=== PATIENT | male | born 1940 | race Caucasian/White ===

== ENCOUNTER → 2016-08-17 | Outpatient (CLI) | payer MEDICARE ==
[2015-06-09 07:00] VITALS: BP 145/81
[~2016-08-17] MED LIST: ASPI-482 PO; ATOR20TA58 PO; BENA40TA2 PO; CARV25TA2 PO; CELE200C PO; CHOL10003 PO; GLIM4TAB2 PO; HYDR-963 PO; METF500T9 PO; MULT1TAB52 PO; OMEG1CAP28 PO; SERT100T PO; WARF5TAB7 PO; [UNRECOGNIZED DRUG - CODE] PO
--- NOTE | 2016-08-21 08:51 | RAD ---
APPROVED REPORT Patient Location: OUT-PATIENT Indications TAL LEG PAIN VELOCITY AND DOPPLER WAVEFORM ANALYSIS RIGHT cm/secWaveformSeverity LEFT c m/secWaveformSeverity pCFA 99.0TriphasicpCFA 91.9Triphasic Prof Fem Art. 41.2BiphasicProf Fem Art. 72.6Triphasic Fem Art Prox. 73.1TriphasicFem Art Prox. 83.6Triphasic Fem Art Mid. 64.8TriphasicFem Art Mid. 64.9Biphasic Fem Art Dist. 90.2TriphasicFem Art Dist. 96.4Triphasic Pop Art(Fossa) 124.9TriphasicPop Art(Fossa) 120.8Triphasic STEM MOUNTER Dist. 49.2TriphasicPTA Dist. 93.2Triphasic Per Art Dist. 51.2TriphasicPer Art Dist. 60.4Triphasic YORDY Prox. 28.2MonophasicATA Prox. 86.1Triphasic YORDY Dist. 39.8MonophasicATA Dist. 20.6Monophasic Findings Alvarado scale images demonstrate diffuse atherosclerotic plaque. No significant high grade stenosis is n oted. Spectral waveforms demonstrate mostly biphasic and triphasic waveforms in the major arterial ve ssels. Ankle velocities in the bilateral DP arteries are diminished suggestive of distal small vessel disease. Critical Notification Critical Value: No <Conclusion> No high grade flow limiting disease about the ankle.
== END | disposition home or self-care (01) ==
LOC: US 06:37
PROVIDERS: ATTEND Internal Medicine Cardiovascular Disease
DX: M79.604 Pain in right leg (principal); M79.605 Pain in left leg
CPT/HCPCS: 93925

== ENCOUNTER → 2016-08-21 | Outpatient (CLI) | payer MEDICARE ==
[2015-06-09 07:00] VITALS: BP 145/81
[~2016-08-21] MED LIST changes: +ATOR40TA59 PO; +CLOP75TA PO; +CYAN10002 IM; +FURO-69 PO; +ONDA8TAB12 PO; +REGADENOSON 0.4 MG/5 ML DISP.SYRIN. IV ONE
--- NOTE | 2016-08-21 12:54 | CARD ---
APPROVED REPORT EXAM: Two-dimensional and M-mode echocardiogram with Doppler and color Doppler. Other Information Quality : GoodHR: 100bpm Rhythm : Tachycardia INDICATION Dyspnea on exertion RISK FACTORS Hypertension Diabetes 2D DIMENSIONS RVDd2.7 (2.9-3.5cm)Left Atrium(2D)3.8 (1.6-4.0cm) IVSd1.3 (0.7-1.1cm)Aortic Root(2D)3.0 (2.0-3.7cm) LVDd6.4 (3.9-5.9cm)LVOT Diameter2.4 (1.8-2.4cm) PWd1.1 (0.7-1.1cm)LVDs5.5 (2.5-4.0cm) FS (%) 13.9 %SV60.2 ml LVEF(%)29.1 (>50%) Aortic Valve AoV Peak Judd.97.4cm/sAoV VTI18.1cm AO Peak GR.3.8mmHgLVOT Peak Judd.74.4cm/s AO Mean GR.2mmHgAVA (VMAX)3.57cm2 Mitral Valve MV E Peak Gr.8mmHgMV E Mean Gr.3mmHg Pulmonary Valve PV Peak Froxvwzv89.0cm/s Tricuspid Valve TR P. Zyofbaaw606uo/sTR Peak Gr.69mmHg Pulmonary Vein S1 Jhofytei12.8cm/sD2 Gqybvvci00.0cm/s PVa [id number] LEFT VENTRICLE The Left Ventricle is mildly dilated. There is mild concentric left ventricular hypertrophy. Left angela tricle systolic function is severely impaired. The Ejection Fraction is 20-25%. There is severe globa l hypokinesis of the left ventricle. Tissue Doppler imaging reveals moderate left ventricular diastol ic dysfunction. No left ventricle thrombus noted on this study. RIGHT VENTRICLE The right ventricle is normal size. There is normal right ventricular wall thickness. The right ventr icular systolic function is normal. ATRIA The left atrium is severely dilated. The right atrium size is normal. The interatrial septum is intac t with no evidence for an atrial septal defect or patent foramen ovale as noted on 2-D or Doppler keith ging. AORTIC VALVE The aortic valve is mildly sclerotic. The aortic valve is trileaflet. Doppler and Color Flow revealed no significant aortic regurgitation. There is no significant aortic valvular stenosis. MITRAL VALVE Mitral annular calcification is mild. The mitral valve leaflets are thickened. There is no evidence o f mitral valve prolapse. There is no mitral valve stenosis. Doppler and Color Flow revealed mild mitr al regurgitation. TRICUSPID VALVE The tricuspid valve is normal in structure and function. Doppler and Color Flow revealed mild tricusp id regurgitation.The pulmonary artery systolic pressure is estimated at 74 mmHg. There is severe pulm onary hypertension. PULMONIC VALVE Doppler and Color Flow revealed trace pulmonic valvular regurgitation. There is no pulmonic valvular stenosis. GREAT VESSELS The aortic root is normal in size. The ascending aorta is normal in size. The pulmonary artery is nor mal. The IVC is normal in size and collapses >50% with inspiration. PERICARDIAL EFFUSION There is no evidence of significant pericardial effusion. Critical Notification Critical Value: No <Conclusion> Left ventricle systolic function is severely impaired. The Ejection Fraction is 20-25%. There is severe global hypokinesis of the left ventricle. Doppler and Color Flow revealed mild tricuspid regurgitation.The pulmonary artery systolic pressure i s estimated at 74 mmHg. There is severe pulmonary hypertension.
--- NOTE | 2016-08-21 13:27 | RAD ---
APPROVED REPORT Test Type: Pharmacological Stress Nurse/Tech: Belkys Victoria R.N. Test Indications: Dyspnea Cardiac History: Family history, Hypertension, Diabetes Medications: See Electronic Medical Record Medical History: See Electronic Medical Record Resting ECG: LBBB Resting Heart Rate: 97 bpm Resting Blood Pressure: 106/67mmHg Pretest Chest Pain: No chest pain Nurse/Tech Notes S1S2, lungs sound clear Consent: The procedure was explained to the patient in lay terms. Informed consent was witnessed. Terry eout was entered into [employer]. History and Stress Test performed by Belkys Victoria R.N. Pharm. Details Pharmacologic stress testing was performed using 0.4mg per 5ml of regadenoson given intravenously ove r 7-10 seconds. Stress Symptoms Dyspnea POST EXERCISE Reason for Termination: Infusion complete Max HR: 103 bpm Max Blood Pressure: 108/62mmHg Blood Pressure response to exercise: Normal blood pressure response during stress. Chest Pain: No. Arrhythmia: No. ST Change: Yes. 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 Stress EKG positive wi th posterior, inferior and lateral st segment depression. Imaging Protocol IMAGE PROTOCOL: Rest Tc-99m/stress Tc-99m 1 day Rest: Stress: Viability: Radiopharm.Tc99m [id number] Sestamibi Dose12.6mCi 34mCi Duration 20min. 10min. Img Date 08/21/2016 08/21/2016 Inj-Img [id number]. 90min. Rest Admin Site:IV - Right AntecubitalAdministrator:MARYA Panda Stress Admin Site: IV - Right AntecubitalAdministrator: Jose Alfredo Flor, RT (R)(N) STRESS DATA End Diast. Vol.278.0mlAv. Heart Rate94.0bpm End Syst. Vol.170.0mlCO Index BSA0.0L/min Myocardial Xvud514.0gEject. Fgqbhucm89.0% Stress Rates Pk. Fill Rate2.52EDV/secLVtime Pk. Fill 190.56msec Pk. Empty Rate3.08ESV/secLVtime Pk. Eject79.23msec 06/13 Pk. Fill1.13EDV/sec Stress Scores Regional WT0.00Summed WT17.00 Regional WM3.00Summed WM19.00 LV Perfusion There is a large sized, severe in intensity inferior, inferolateral, and apical perfusion defect sugg estive of prior infarct with mild daily-infarct reversibility. Based on tracer uptake in the rest imag es, the defect is mostly viable. 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 Wall Motion Severe global hypokinesis with an EF of 39% LV Perf. Quant 17 Seg. SSS14.00 17 Seg. SRS11.00 17 Seg. SDS3.00 Stress Defect Extent (% LAD)2.50Rest Defect Extent (% LAD)5.00Rev. Defect Extent (% LAD)2.50 Stress Defect Extent (% LCX) 85.00Rest Defect Extent (% LCX)81.30Rev. Defect Extent (% LCX)5.00 Stress Defect Extent (% RCA)30.00Rest Defect Extent (% RCA)23.30Rev. Defect Extent (% RCA)3.30 Stress Defect Extent (% ALMA)28.90Rest Defect Extent (% ALMA)24.80Rev. Defect Extent (% ALMA)6.10 Other Information Quality:Average Risk Assessment: Moderate-High Risk Conclusion 1. Positive stress EKG with vasodilator infusion with inferior/lateral changes 2. Large inferior/lateral defect suggestive of prior infarct with mild daily-infarct reversibility 3. Severe LV dysfunction. EF 39% 4. Moderate to high risk study Recommendations Coronary angiography
== END | disposition home or self-care (01) ==
LOC: NM 07:12
PROVIDERS: ATTEND Internal Medicine Cardiovascular Disease
DX: R06.09 Other forms of dyspnea (principal); I10 Essential (primary) hypertension; Z79.01 Long term (current) use of anticoagulants; E11.9 Type 2 diabetes mellitus without complications
CPT/HCPCS: 78452; 93017; 93306; 96374; 96375; 96376; A9500; J2785

== ENCOUNTER 2016-08-22 06:56 | Inpatient (IN) | payer MEDICARE ==
[~2016-08-22] VITALS: Ht 177.8 cm; Wt 99.4 kg
[2016-08-22] VITALS (14 sets, daily range): BP systolic 94–131; BP diastolic 63–87
[~2016-08-22 06:56] MED LIST changes: -ATOR40TA59 PO; -CLOP75TA PO; -CYAN10002 IM; -FURO-69 PO; -ONDA8TAB12 PO; -REGADENOSON 0.4 MG/5 ML DISP.SYRIN. IV ONE
[2016-08-22] MEDS ORDERED: CYAN10002 IM (07:23)
[2016-08-22] MEDS ORDERED: ATOR40TA59 PO (07:23)
[2016-08-22 07:31] LABS: HEMATOCRIT 30.5 % (39.0-53.0); HEMOGLOBIN 10.2 g/dL (13.0-17.5); RED BLOOD COUNT 3.35 x10^6/uL (4.30-5.70); WHITE BLOOD COUNT 5.5 x10^3/uL (4.0-11.0)
[2016-08-22] MEDS ORDERED: HEPARIN for ARTERIAL LINE 1,500 ML ONE (07:31)
[2016-08-22] MEDS ORDERED: IODIXANOL 320 MG/ML 100 ML VIAL. ONE (07:32)
[2016-08-22] MEDS ORDERED: LIDOCAINE 2% 20 ML VIAL. ONE (07:32)
[2016-08-22 07:36] LABS: CALCIUM 8.7 mg/dL (8.5-10.1); CREATININE 1.3 mg/dL (0.7-1.3); GFR 53.7
[2016-08-22 07:43] LABS: INR 1.2 (0.8-1.1); PROTHROMBIN TIME PATIENT 14.1 SEC (11.7-14.0)
[2016-08-22] MEDS: IV NORMAL SALINE 1000ML BAG 1,000 ML IV SCH ×2 (08:25→16:34)
[2016-08-22] MEDS ORDERED: VERAPAMIL 5 MG/2 ML VIAL. ONE (08:27)
[2016-08-22] MEDS ORDERED: NITROGLYCERIN 200 MCG/2 ML SYRINGE FOR CATH/VASC LAB. ONE (08:27)
[2016-08-22] MEDS ORDERED: ASPIRIN 325 MG TABLET ONE (08:28)
[2016-08-22] MEDS ORDERED: MIDAZOLAM HCL 2 MG/2 ML VIAL. ONE (08:28)
[2016-08-22] MEDS ORDERED: HEPARIN for IV BOLUS 10,000 UNIT/10 ML VIAL. ONE (08:28)
[2016-08-22] MEDS ORDERED: FENTANYL PF 100 MCG/2 ML VIAL. ONE (08:28)
--- NOTE | 2016-08-22 08:31 | PDOC ---
MODERATE SEDATION ASSESSMENT RISKS/ALTERNATIVES Risks/Alternatives Risks and alternatives of this type of sedation and procedure discussed with: RISK/ALTERNATIVES: Patient H & P ON CHART H & P H & P on chart and reviewed for co-morbid conditions and appropriate labs. H&P ON CHART: Yes STATUS PREG STATUS ASSESSED: N/A MEDS/ALLERGIES REVIEWED Meds/Allergies Reviewed Medications and Allergies including time and route of recently administered narcotics and sedatives. MEDS/ALLERGIES REVIEWED: Yes ASA RATING ASA RATING: II AIRWAY ASSESSMENT Airway Assessment Airway patency, oral function limitations, presence of caps, crowns, dentures, partials, and ability to extend neck assessed. AIRWAY ASSESSMENT: Yes MALLAMPATI SCORE MALLAMPATI SCORE: III PRE-SEDATION ASSESSMENT PRE-SEDATION ASSESSMENT: Yes KOURTNEY LOONEY MD Aug 22, 2016 08:31
[2016-08-22] MEDS ORDERED: FENTANYL PF 100 MCG/2 ML VIAL. IV ONE (08:45)
[2016-08-22] MEDS ORDERED: MIDAZOLAM HCL 2 MG/2 ML VIAL. IV ONE (08:45)
[2016-08-22] MEDS ORDERED: VERAPAMIL 5 MG/2 ML VIAL. IART ONE (08:45)
[2016-08-22] MEDS ORDERED: LIDOCAINE 2% 20 ML VIAL. IJ ONE (08:45)
[2016-08-22] MEDS ORDERED: HEPARIN for IV BOLUS 10,000 UNIT/10 ML VIAL. IART ONE (08:45)
[2016-08-22] MEDS ORDERED: NITROGLYCERIN 200 MCG/2 ML SYRINGE FOR CATH/VASC LAB. IART ONE (08:45)
[2016-08-22] MEDS ORDERED: IODIXANOL 320 MG/ML 100 ML VIAL. IART ONE (08:45)
[2016-08-22] MEDS ORDERED: ASPIRIN 325 MG TABLET PO ONE (08:45)
[2016-08-22] MEDS ORDERED: CONTRAST GIVEN MC PRN (09:00)
--- NOTE | 2016-08-22 09:46 | CARD ---
APPROVED REPORT Procedure(s) performed: Right transradial approach Left Heart Catheterization + Coronary angiography HISTORY The patient is a 75 year-old male with a history of : diabetes mellitus with oral treatment, hyperten yonatan, dyslipidemia, family history of premature CAD. INDICATION The indication(s) include : unstable angina , dyspnea. CASE TECHNIQUE During this case, Fluoroscopy and low osmolar contrast were used for imaging. PROCEDURE NARRATIVE The patient was brought electively to the cardiac catheterization lab. A timeout was performed confi rming the patient's name, date of , procedure, and site of procedure. All necessary personnel w ere wearing the appropriate protective equipment and radiation monitor devices. After explaining the risks and benefits of the procedure and alternatives, informed consent was obtained. (See nursing no alyssia for medications administered). The right wrist was sterilely prepped and draped in the usual fas hion. The right wrist was infiltrated with 1 mL of 2% lidocaine for subcutaneous anesthesia. A 6 Fr ench Terumo glide sheath was inserted into the right radial artery without difficulty. Right and lef t coronary angiography was performed using a 6Fr TIG 4.0 catheter and a JR4 catheter. Left ventricul ar end diastolic pressure was obtained with a JR4 and pullback was performed. All catheter exchanges and advancements were performed over a guidewire. At case completion the right radial sheath was re moved and a Terumo radial band was applied with 13 ml of air. The patient tolerated the procedure we ll and there were no immediate complications. HEMODYNAMICS: LVEDP 38 mm Hg No gradient on LV to aortic pullback. LEFT VENTRICULOGRAM: Deferred due to recent echo with an EF of 25% CORONARY ANGIOGRAPHY: LM is a large caliber vessel with a mid to distal 70% stenosis. LAD is a large caliber vessel proximally with stenosis extending from the LM of approximately 70%. Th e distal vessel is small in caliber with miild diffuse disease. Ramus is a small caliber vessel with severe diffuse disease. LCx is a moderate caliber non-dominant vessel with a flush ostial occlusion. OM1 is a moderate caliber vessel with an ostial occlusion. The distal vessel is seen to fill via left to left collaterals. RCA is a large caliber dominant vessel with a proximal 40% stenosis. The mid to distal vessel has mil d diffuse disease. RPDA and RPL are moderate caliber vessels with ostia/proximal 90% and 80% stenosis, respectively. Conclusion 1. Severely elevated left ventricular filling pressures. 2. Severe 3V CAD with LM involvement. Recommendations Admit to hospital for mgmt of heart failure CT surgery consultation Consider high risk Impella supported PCI after HF optimization if patient felt to be poor candidate f or CABG Will await patient/family decision.
[2016-08-22] MEDS ORDERED: NITROGLYCERIN SUBLINGUAL 0.4 MG BOTTLE OF 25. SL PRN (11:15)
[2016-08-22] MEDS ORDERED: FUROSEMIDE 20 MG/2 ML VIAL IVP ONE (11:15)
[2016-08-22] MEDS ORDERED: 0.9 % SODIUM CHLORIDE 10 ML DISP.SYRIN. IV PRN (11:15)
[2016-08-22] MEDS ORDERED: ONDA8TAB12 PO (13:00)
--- NOTE | 2016-08-22 14:13 | PDOC1 ---
History and Physical Past Medical History Past Medical History Past Medical History: Diabetes-Type II, High Cholesterol, Hypertension Additional Past Surgical Histo: bilateral cataracts, left detached retina, hip surgery, Alcohol Use: Occasionally Drug Use: None smoking none Family History Family History NO CAD, SUDDEN CARDIAC . Cardiovascular: HTN Endocrine: Diabetes Past Surgical History Past Surgical History: No pertinent history Family History Family History: No Significant Social History ALCOHOL: occassional Drugs: None Current Problem List Problem List Problems Medical Problems: (1) CAD (coronary artery disease) Status: Acute Current Medications Current Medications Current Medications Medications (Trade) Dose Ordered Sig/Jennyfer Start Time Stop Time Status Last Admin Dose Admin Aspirin (Robbi Aspirin) 325 mg 1X ONCE 08/22/16 08:45 08/22/16 08:48 DC 08/22/16 09:02 325 MG Aspirin (Ecotrin) 81 mg [id number] 08/23/16 08:00 Atorvastatin Calcium (Lipitor) 40 mg QHS 08/22/16 21:00 Fentanyl Citrate (Fentanyl 2ml Vial) 100 mcg 1X ONCE 08/22/16 08:45 08/22/16 08:48 DC 08/22/16 09:01 75 MCG Furosemide (Lasix) 20 mg 1X ONCE 08/22/16 11:15 08/22/16 11:21 DC 08/22/16 13:17 20 MG Heparin Sodium (Porcine) 2,500 unit 1X ONCE 08/22/16 08:45 08/22/16 08:48 DC 08/22/16 09:02 2,500 UNIT Heparin Sodium/ Sodium Chloride 1,000 unit 1X ONCE 08/22/16 08:45 08/22/16 08:48 DC 08/22/16 09:00 1,000 UNIT Info (Do NOT chart on this entry -- for MONITORING) 1 each PRN DAILY PRN 08/22/16 09:00 08/24/16 08:59 Iodixanol (Visipaque 320) 100 ml 1X ONCE 08/22/16 08:45 08/22/16 08:48 DC 08/22/16 09:00 55 ML Lidocaine HCl 2 ml 1X ONCE 08/22/16 08:45 08/22/16 08:48 DC 08/22/16 09:00 2 ML Midazolam HCl (Versed) 2 mg 1X ONCE 08/22/16 08:45 08/22/16 08:48 DC 08/22/16 09:01 1.5 MG Nitroglycerin (Nitroglycerin) 200 mcg 1X ONCE 08/22/16 08:45 08/22/16 08:48 DC 08/22/16 09:01 200 MCG Nitroglycerin (Nitrostat) 0.4 mg PRN Q5MIN PRN 08/22/16 11:15 Sodium Chloride (Iv Sodium Chloride 0.9% 1000ml Bag) 1,000 ml @ 60 mls/hr [id number] 08/22/16 07:05 08/22/16 08:25 60 MLS/HR Sodium Chloride (Normal Saline Flush) 3 ml QSHIFT PRN 08/22/16 11:15 Verapamil HCl (Verapamil) 2.5 mg 1X ONCE 08/22/16 08:45 08/22/16 08:48 DC 08/22/16 09:01 2.5 MG Allergies Allergies Allergies Coded Allergies Type Severity Reaction Last Updated Verified No Known Drug Allergies 06/06/15 No ROS Review of System CONSTITUTIONAL: No fever or chills EYES: No recent changes SKIN: No rash or itching CARDIOVASCULAR: sob, no chest pain RESPIRATORY: No SOB or cough GASTROINTESTINAL: No nausea, vomiting or abdominal pain NEUROLOGICAL: No headaches or weakness ENDOCRINE: No cold or heat intolerance GENITOURINARY: No urgency or frequency of urination MUSCULOSKELETAL: No back pain or joint pain LYMPHATICS: No enlarged lymph nodes PSYCHIATRIC: No anxiety or depression Physical Exam Physical Exam GEN.: No apparent distress. Alert and oriented. HEENT: Head is normocephalic, atraumatic NECK: Supple. no jvd LUNGS: Clear to auscultation. normal airflow. HEART: RRR, S1, S2 present. Peripheral pulses intact ABDOMEN: Soft, nontender. Positive bowel sounds. EXTREMITIES: Without any cyanosis. NEUROLOGIC: Normal speech, normal tone PSYCHIATRIC: Normal affect, normal mood. SKIN: No ulcerations Vitals Vitals Vital Signs Date Time Temp Pulse Resp B/P Pulse Ox O2 Delivery O2 Flow Rate FiO2 08/22/16 13:14 91 117/81 08/22/16 12:40 Room Air 08/22/16 12:00 97.6 20 95 97.6 08/22/16 09:20 2.0 Labs Labs Laboratory Tests Test 08/22/16 07:10 White Blood Count 5.5x10^3/uL (4.0-11.0) Red Blood Count 3.35x10^6/uL (4.30-5.70) Hemoglobin 10.2g/dL (13.0-17.5) Hematocrit 30.5% (39.0-53.0) Mean Corpuscular Volume 91fL (79-100) Mean Corpuscular Hemoglobin 31pg (25-35) Mean Corpuscular Hemoglobin Concent 34g/dL (31-37) Red Cell Distribution Width 14.0% (11.5-14.5) Platelet Count 203x10^3/uL (140-400) Prothrombin Time 14.1SEC (11.7-14.0) Prothromb Time International Ratio 1.2 (0.8-1.1) Sodium Level 142mmol/L (136-145) Potassium Level 4.0mmol/L (3.5-5.1) Chloride Level 106mmol/L (98-107) Carbon Dioxide Level 26mmol/L (21-32) Anion Gap 10 (6-14) Blood Urea Nitrogen 24mg/dL (8-26) Creatinine 1.3mg/dL (0.7-1.3) Estimated GFR (Cockcroft-Gault) 53.7 Glucose Level 157mg/dL (70-99) Calcium Level 8.7mg/dL (8.5-10.1) Laboratory Tests Test 08/22/16 07:10 White Blood Count 5.5x10^3/uL (4.0-11.0) Red Blood Count 3.35x10^6/uL (4.30-5.70) Hemoglobin 10.2g/dL (13.0-17.5) Hematocrit 30.5% (39.0-53.0) Mean Corpuscular Volume 91fL (79-100) Mean Corpuscular Hemoglobin 31pg (25-35) Mean Corpuscular Hemoglobin Concent 34g/dL (31-37) Red Cell Distribution Width 14.0% (11.5-14.5) Platelet Count 203x10^3/uL (140-400) Prothrombin Time 14.1SEC (11.7-14.0) Prothromb Time International Ratio 1.2 (0.8-1.1) Sodium Level 142mmol/L (136-145) Potassium Level 4.0mmol/L (3.5-5.1) Chloride Level 106mmol/L (98-107) Carbon Dioxide Level 26mmol/L (21-32) Anion Gap 10 (6-14) Blood Urea Nitrogen 24mg/dL (8-26) Creatinine 1.3mg/dL (0.7-1.3) Estimated GFR (Cockcroft-Gault) 53.7 Glucose Level 157mg/dL (70-99) Calcium Level 8.7mg/dL (8.5-10.1) VTE Prophylaxis Ordered VTE Prophylaxis Devices: Yes VTE Pharmacological Prophylaxi: No NILDA MERCHANT MD Aug 22, 2016 14:13
[2016-08-22] MEDS ORDERED: ONDANSETRON PF 4 MG/2 ML VIAL. IV PRN (14:15)
[2016-08-22] MEDS ORDERED: ACETAMINOPHEN 325 MG TABLET. PO PRN (14:15)
[2016-08-22] MEDS ORDERED: ALBUTEROL SULFATE 2.5 MG/3 ML NEBU. NEB PRN (14:15)
[2016-08-22] MEDS ORDERED: hydrALAZINE 20 MG/ML VIAL. IVP PRN (14:15)
[2016-08-22] MEDS ORDERED: HYDROCODONE/APAP 5/325MG TABLET. PO PRN (14:15)
--- NOTE | 2016-08-22 17:08 | PDOC2 ---
CONSULT Date of Consult Date of Consult DATE: 08/22/16 TIME: 16:53 Reason for Consult Reason for Consult: Severe three-vessel coronary artery disease Referring Physician Referring Physician: Blaine Schwartz MD Identification/Chief Complaint Chief Complaint Shortness of breath Source Source: Chart review, Patient History of Present Illness Reason for Visit: Mr Gar is a 76-year-old male who presented to our [facility] safety helper with increased shortness of breath on minimal exertion. He had an echo which showed a reduced ejection fraction of 25-30%. He went on to have a MPI which showed an inferior wall infarct with daily-infarct viability. He had a left heart cath today, which showed a distal 70% left main disease, proximal LAD stenosis, CT of the proximal circumflex, and a bifurcation lesion of a RPDA and RPL. He and denies angina, palpitations, orthopnea. He currently has no symptoms. He only complains of shortness of breath on minimal exertion which has worsened over the past several months. I was consulted to consider the patient for surgical coronary revascularization. Past Medical History Cardiovascular: HTN Endocrine: Diabetes Past Surgical History Past Surgical History: No pertinent history Family History Family History: No Significant Social History ALCOHOL: occassional Drugs: None Lives: with Family Current Problem List Problem List Problems Medical Problems: (1) CAD (coronary artery disease) Status: Acute Current Medications Current Medications Current Medications Sodium Chloride 1,000 ml @ 60 mls/hr [id number] IV Last administered on t 16:34; Start 08/22/16 at 07:05 Heparin Sodium/ Sodium Chloride 1,500 ml @ As Directed STK-MED ONCE .ROUTE ; Start 08/22/16 at 07:31; Stop 08/22/16 at 07:32; Status DC Lidocaine HCl 20 ml STK-MED ONCE .ROUTE ; Start 08/22/16 at 07:32; Stop at 07:33; Status DC Iodixanol (Visipaque 320) 100 ml STK-MED ONCE .ROUTE ; Start 08/22/16 at 07:32; Stop 08/22/16 at 07:33; Status DC Nitroglycerin (Nitroglycerin) 200 mcg STK-MED ONCE .ROUTE ; Start 08/22/16 at 08 :27; Stop 08/22/16 at 08:28; Status DC Verapamil HCl (Verapamil) 5 mg STK-MED ONCE .ROUTE ; Start 08/22/16 at 08:27; Stop 08/22/16 at 08:28; Status DC Aspirin (Robbi Aspirin) 325 mg STK-MED ONCE .ROUTE ; Start 08/22/16 at 08:28; Stop 08/22/16 at 08:29; Status DC Heparin Sodium (Porcine) 10,000 unit STK-MED ONCE .ROUTE ; Start 08/22/16 at 08: 28; Stop 08/22/16 at 08:29; Status DC Fentanyl Citrate (Fentanyl 2ml Vial) 100 mcg STK-MED ONCE .ROUTE ; Start at 08:28; Stop 08/22/16 at 08:29; Status DC Midazolam HCl (Versed) 2 mg STK-MED ONCE .ROUTE ; Start 08/22/16 at 08:28; Stop 08/22/16 at 08:29; Status DC Nitroglycerin (Nitroglycerin) 200 mcg 1X ONCE IART Last administered on 09:01; Start 08/22/16 at 08:45; Stop 08/22/16 at 08:48; Status DC Verapamil HCl (Verapamil) 2.5 mg 1X ONCE IART Last administered on 08/22/16 09:01; Start 08/22/16 at 08:45; Stop 08/22/16 at 08:48; Status DC Heparin Sodium (Porcine) 2,500 unit 1X ONCE IART Last administered on 09:02; Start 08/22/16 at 08:45; Stop 08/22/16 at 08:48; Status DC Heparin Sodium/ Sodium Chloride 1,000 unit 1X ONCE IART Last administered on 09:00; Start 08/22/16 at 08:45; Stop 08/22/16 at 08:48; Status DC Midazolam HCl (Versed) 2 mg 1X ONCE IV Last administered on 08/22/16 09:01; Start 08/22/16 at 08:45; Stop 08/22/16 at 08:48; Status DC Fentanyl Citrate (Fentanyl 2ml Vial) 100 mcg 1X ONCE IV Last administered on 09:01; Start 08/22/16 at 08:45; Stop 08/22/16 at 08:48; Status DC Iodixanol (Visipaque 320) 100 ml 1X ONCE IART Last administered on 08/22/16 09:00; Start 08/22/16 at 08:45; Stop 08/22/16 at 08:48; Status DC Aspirin (Robbi Aspirin) 325 mg 1X ONCE PO Last administered on 08/22/16 09:02 ; Start 08/22/16 at 08:45; Stop 08/22/16 at 08:48; Status DC Lidocaine HCl 2 ml 1X ONCE IJ Last administered on 08/22/16 09:00; Start at 08:45; Stop 08/22/16 at 08:48; Status DC Info (Do NOT chart on this entry -- for MONITORING) 1 each PRN DAILY PRN MC SEE COMMENTS; Start 08/22/16 at 09:00; Stop 08/24/16 at 08:59 Sodium Chloride (Normal Saline Flush) 3 ml QSHIFT PRN IV AFTER MEDS AND BLOOD DRAWS; Start 08/22/16 at 11:15 Aspirin (Ecotrin) 81 mg DAILYWBKFT PO ; Start 08/23/16 at 08:00 Atorvastatin Calcium (Lipitor) 40 mg QHS PO ; Start 08/22/16 at 21:00 Nitroglycerin (Nitrostat) 0.4 mg PRN Q5MIN PRN SL CHEST PAIN; Start 08/22/16 at 11:15 Furosemide (Lasix) 20 mg 1X ONCE IVP Last administered on 08/22/16 13:17; Start 08/22/16 at 11:15; Stop 08/22/16 at 11:21; Status DC Acetaminophen (Tylenol) 325 mg PRN Q6HRS PRN PO MILD PAIN / TEMP; Start at 14:15 Acetaminophen/ Hydrocodone Bitart (Lortab 5/325) 1 tab PRN Q6HRS PRN PO MODERATE TO SEVERE PAIN; Start 08/22/16 at 14:15 Hydralazine HCl (Apresoline) 10 mg PRN Q4HRS PRN IVP ELEVATED BP, SEE COMMENTS ; Start 08/22/16 at 14:15 Ondansetron HCl (Zofran) 4 mg PRN Q8HRS PRN IV NAUSEA/VOMITING; Start 08/22/16 at 14:15 Albuterol Sulfate (Ventolin Neb Soln) 2.5 mg PRN Q4HRS PRN NEB SHORTNESS OF BREATH; Start 08/22/16 at 14:15 Active Scripts Active Reported Zofran Odt (Ondansetron) 8 Mg Tab.rapdis 1 Tab PO Q8HRS Cyanocobalamin Injection (Cyanocobalamin (Vitamin B-12)) 1,000 Mcg/1 Ml Vial 1 Ml IM QMONTH Atorvastatin Calcium 40 Mg Tablet 1 Tab PO DAILY Fish Oil 1,200 Mg Softgel (Harper-3 Fatty Acids/Fish Oil) 1 Each Capsule 1 Each PO BID Multivitamins (Multivitamin) 1 Each Tablet 1 Tab PO DAILY Vitamin D3 (Cholecalciferol (Vitamin D3)) 1,000 Unit Tablet 1 Tab PO DAILY Aspir 81 (Aspirin) 81 Mg Tablet.dr 1 Tab PO DAILY Zoloft (Sertraline Hcl) 100 Mg Tablet 1 Tab PO DAILY Carvedilol 25 Mg Tablet 1 Tab PO BID Benazepril Hcl 40 Mg Tablet 1 Tab PO DAILY Metformin Hcl Er (Metformin Hcl) 500 Mg Tab.er.24h 1 Tab PO BID Allergies Allergies: Coded Allergies: No Known Drug Allergies (Unverified , 06/06/15) ROS General: No: Appetite, Chills, Fatigue, Malaise, Night Sweats PSYCHOLOGICAL ROS: No: Anxiety, Behavioral Disorder, Concentration difficultie , Decreased libido, Depression, Disorientation, Hallucinations, Hostility, Irritablity, Memory difficulties, Mood Swings, Obsessive thoughts, Other, Physical abuse, Sexual abuse, Sleep disturbances Eyes: No Blurry vision, No Decreased vision, No Double vision, No Dry eyes, No Excessive tearing, No Eye Pain, No Itchy Eyes, No Loss of vision, No Photophobia , No Scotomata, No Uses contacts, No Uses glasses HEENT: No: Epistaxis, Heacaches, Hearing change, Nasal congestion, Nasal discharge, Oral lesions, Sinus pain, Sneezing, Snoring, Sore Throat, Tinnitus, Vertigo, Visual Changes, Vocal changes ALLERGY AND IMMUNOLOGY: No: Hives, Insect Bite Sensitivity, Itchy/Watery Eyes, Nasal Congestion, Post Nasal Drip, Seasonal Allergies Hematological and Lymphatic: No: Bleeding Problems, Blood Clots, Blood Transfusions, Brusing, Night Sweats, Pallor, Swollen Lymph Nodes ENDOCRINE: No: Breast Changes, Galactorrhea, Hair Pattern Changes, Hot Flashes , Malaise/lethargy, Mood Swings, Palpitations, Polydipsia/polyuria, Skin Changes , Temperature Intolerance, Unexpected Weight Changes Respiratory: YES: Shortness of breath, No: Cough, Hemoptysis, Orthopnea, Pleuritic Pain, SOB with excertion, Sputum Changes, Stridor, Tachypnea, Wheezing Cardiovascular: No Chest Pain, No Edema, No Lt Headedness, No Orthopnea, No Palpitations, No Paroxysmal Noc. Dyspnea Gastrointestinal: No Abdominal Pain, No Constipation, No Diarrhea, No Hematochezia, No Melena, No Nausea, No Vomiting Genitourinary: No Discharge, No Dysuria, No Flank Pain, No Frequency, No Hematuria, No Incontinence, No Pain, No Retention, No Urgency Musculoskeletal: Yes Joint Pain, Yes Joint Stiffness, No Gait Disturbance, No Joint Swelling, No Muscle Pain, No Muscular Weakness , No Pain In:, No Swelling In: Neurological: No Behavorial Changes, No Bowel/Bladder ControlChng, No Confusion , No Dizziness, No Gait Disturbance, No Headaches, No Impaired Coord/balance, No Memory Loss, No Numbness/Tingling, No Seizures, No Speech Problems, No Tremors, No Visual Changes, No Weakness Skin: No Acne, No Dry Skin, No Eczema, No Hair Changes, No Lumps, No Mole Changes, No Mottling, No Nail Changes, No Pruritus, No Rash, No Skin Lesion Changes Physical Exam General: Alert, Oriented X3, No acute distress HEENT: Atraumatic, PERRLA Lungs: Clear to auscultation Heart: Regular rate, Normal S1, Normal S2 Abdomen: Soft, No tenderness Extremities: No edema Skin: No breakdown Neuro: Normal speech, Strength at 5/5 X4 ext, Normal tone, Sensation intact, Cranial nerves 3-12 NL Psych/Mental Status: Mental status NL MUSCULOSKELETAL: No deformity Vitals VITALS Vital Signs Date Time Temp Pulse Resp B/P Pulse Ox O2 Delivery O2 Flow Rate FiO2 08/22/16 15:24 97.7 89 20 115/77 95 Room Air 97.7 08/22/16 09:20 2.0 Labs Labs Laboratory Tests Test 08/22/16 07:10 White Blood Count 5.5x10^3/uL (4.0-11.0) Red Blood Count 3.35x10^6/uL (4.30-5.70) Hemoglobin 10.2g/dL (13.0-17.5) Hematocrit 30.5% (39.0-53.0) Mean Corpuscular Volume 91fL (79-100) Mean Corpuscular Hemoglobin 31pg (25-35) Mean Corpuscular Hemoglobin Concent 34g/dL (31-37) Red Cell Distribution Width 14.0% (11.5-14.5) Platelet Count 203x10^3/uL (140-400) Prothrombin Time 14.1SEC (11.7-14.0) Prothromb Time International Ratio 1.2 (0.8-1.1) Sodium Level 142mmol/L (136-145) Potassium Level 4.0mmol/L (3.5-5.1) Chloride Level 106mmol/L (98-107) Carbon Dioxide Level 26mmol/L (21-32) Anion Gap 10 (6-14) Blood Urea Nitrogen 24mg/dL (8-26) Creatinine 1.3mg/dL (0.7-1.3) Estimated GFR (Cockcroft-Gault) 53.7 Glucose Level 157mg/dL (70-99) Calcium Level 8.7mg/dL (8.5-10.1) Laboratory Tests Test 08/22/16 07:10 White Blood Count 5.5x10^3/uL (4.0-11.0) Red Blood Count 3.35x10^6/uL (4.30-5.70) Hemoglobin 10.2g/dL (13.0-17.5) Hematocrit 30.5% (39.0-53.0) Mean Corpuscular Volume 91fL (79-100) Mean Corpuscular Hemoglobin 31pg (25-35) Mean Corpuscular Hemoglobin Concent 34g/dL (31-37) Red Cell Distribution Width 14.0% (11.5-14.5) Platelet Count 203x10^3/uL (140-400) Prothrombin Time 14.1SEC (11.7-14.0) Prothromb Time International Ratio 1.2 (0.8-1.1) Sodium Level 142mmol/L (136-145) Potassium Level 4.0mmol/L (3.5-5.1) Chloride Level 106mmol/L (98-107) Carbon Dioxide Level 26mmol/L (21-32) Anion Gap 10 (6-14) Blood Urea Nitrogen 24mg/dL (8-26) Creatinine 1.3mg/dL (0.7-1.3) Estimated GFR (Cockcroft-Gault) 53.7 Glucose Level 157mg/dL (70-99) Calcium Level 8.7mg/dL (8.5-10.1) Assessment/Plan Assessment/Plan 76-year-old male, with severe three-vessel coronary artery disease, reduced ejection fraction at 25% and diabetes. After reviewing his coronary angiography , he has a good R PL and RPDA targets, a potentially good obtuse marginal target which backfills as the left circumflex is completely occluded. The LAD is relatively small and diffusely calcified but I think it is potentially bypassable in its mid segment. In view of his coronary anatomy, reduced ejection fraction and history of diabetes, threre is a strong indications to proceed with CABG. I explained the risks, benefits and potential limitations of coronary artery bypass grafting surgery. I quoted a mortality risk of 3-4%, 1-2% risk of stroke, 1-2% risk of the VDRF, 1% risk of sternal wound infection, 5% risk of pneumonia, 5% risk of perioperative myocardial infarction, 1% risk of renal failure and a 20-30% risk of arrhythmias. The patient is also considering PCI, which he appears to be leaning towards. This would not be an unreasonable option. The patient had a recent hip replacement which he is still recovering from. He has some instability when he ambulates and uses a walker. Although this does not preclude him from open heart surgery, it it would certainly prolong his recovery. CABG overall would be better therapy, especially in the long-term, but the patient appears to be considering his options. He has some concerns about proceeding with open heart surgery, which I can understand. I'll be happy to proceed with CABG should the patient opt to. JAMES HALL MD Aug 22, 2016 17:08
--- NOTE | 2016-08-22 18:29 | PDOC2 ---
CARDIOLOGY CONSULT NOTE CHEIF COMPLAINT: Dyspnea Problems: HPI: Filemon is a pleasant 75-year-old gentleman who comes into the cardiac catheterization laboratory due to an abnormal stress test. He was recently seen by my partner Dr. Hand. He had severe LV dysfunction on echocardiogram obtained for dyspnea. He also had severe abnormalities noted on the stress test. Therefore due to persistent dyspnea he was brought to the catheterization laboratory for further evaluation. His cardiac catheterization today revealed three-vessel coronary disease as noted below. Due to severely elevated left ventricular filling pressures and dyspnea on minimal exertion he was admitted to the hospital for expedited surgical evaluation as well as titration of medical therapy to optimize his heart failure. PMHX: Hypertension Alcohol abuse Dyslipidemia SOCHX: No illicit drug use. He lives at home with his . FAMHX: Noncontributory CURRENT MEDS: Current Medications Medications (Trade) Dose Ordered Sig/Jennyfer Start Time Stop Time Status Last Admin Dose Admin Acetaminophen (Tylenol) 325 mg PRN Q6HRS PRN 08/22/16 14:15 Acetaminophen/ Hydrocodone Bitart (Lortab 5/325) 1 tab PRN Q6HRS PRN 08/22/16 14:15 Albuterol Sulfate (Ventolin Neb Soln) 2.5 mg PRN Q4HRS PRN 08/22/16 14:15 Aspirin (Robbi Aspirin) 325 mg 1X ONCE 08/22/16 08:45 08/22/16 08:48 DC 08/22/16 09:02 325 MG Aspirin (Ecotrin) 81 mg DAILYWBKFT 08/23/16 08:00 Atorvastatin Calcium (Lipitor) 40 mg QHS 08/22/16 21:00 Fentanyl Citrate (Fentanyl 2ml Vial) 100 mcg 1X ONCE 08/22/16 08:45 08/22/16 08:48 DC 08/22/16 09:01 75 MCG Furosemide (Lasix) 20 mg 1X ONCE 08/22/16 11:15 08/22/16 11:21 DC 08/22/16 13:17 20 MG Heparin Sodium (Porcine) 2,500 unit 1X ONCE 08/22/16 08:45 08/22/16 08:48 DC 08/22/16 09:02 2,500 UNIT Heparin Sodium/ Sodium Chloride 1,000 unit 1X ONCE 08/22/16 08:45 08/22/16 08:48 DC 08/22/16 09:00 1,000 UNIT Hydralazine HCl (Apresoline) 10 mg PRN Q4HRS PRN 08/22/16 14:15 Info (Do NOT chart on this entry -- for MONITORING) 1 each PRN DAILY PRN 08/22/16 09:00 08/24/16 08:59 Iodixanol (Visipaque 320) 100 ml 1X ONCE 08/22/16 08:45 08/22/16 08:48 DC 08/22/16 09:00 55 ML Lidocaine HCl 2 ml 1X ONCE 08/22/16 08:45 08/22/16 08:48 DC 08/22/16 09:00 2 ML Midazolam HCl (Versed) 2 mg 1X ONCE 08/22/16 08:45 08/22/16 08:48 DC 08/22/16 09:01 1.5 MG Nitroglycerin (Nitroglycerin) 200 mcg 1X ONCE 08/22/16 08:45 08/22/16 08:48 DC 08/22/16 09:01 200 MCG Nitroglycerin (Nitrostat) 0.4 mg PRN Q5MIN PRN 08/22/16 11:15 Ondansetron HCl (Zofran) 4 mg PRN Q8HRS PRN 08/22/16 14:15 Sodium Chloride (Iv Sodium Chloride 0.9% 1000ml Bag) 1,000 ml @ 60 mls/hr [id number] 08/22/16 07:05 08/22/16 16:34 60 MLS/HR Sodium Chloride (Normal Saline Flush) 3 ml QSHIFT PRN 08/22/16 11:15 Verapamil HCl (Verapamil) 2.5 mg 1X ONCE 08/22/16 08:45 08/22/16 08:48 DC 08/22/16 09:01 2.5 MG ALLERGIES: Allergies Coded Allergies Type Severity Reaction Last Updated Verified No Known Drug Allergies 06/06/15 No ROS: Negative for 10 out of 14 systems reviewed unless otherwise mentioned above in history of present illness. PHYSICAL EXAM: Vital Signs: Vital Signs Date Time Temp Pulse Resp B/P Pulse Ox O2 Delivery O2 Flow Rate FiO2 08/22/16 15:24 97.7 89 20 115/77 95 Room Air 97.7 08/22/16 09:20 2.0 Physical Exam: In general he is alert and oriented no acute distress. Head and neck exam unremarkable Cardiac regular rate and rhythm without any murmurs rubs or gallops Lungs clear to auscultation bilaterally. Abdomen is obese nontender nondistended Extremities without any clubbing cyanosis or edema Neurologic no focal deficits Muscular skeletal no trauma Psychiatric normal affect and mood. DIAGNOSTIC TESTING: Cardiac catheterization today reveals an LVEDP of 39 mmHg. He has severe three- vessel disease with any occluded ostial left circumflex with left right collaterals filling a fairly large obtuse marginal vessel. The LAD is diffusely diseased with 50-60% and calcified stenoses. The distal left main has approximate 70% stenosis. The RCA is a large caliber dominant vessel with distal bifurcation disease involving moderate sized PDA and RPL vessels. Lab Laboratory Tests Test 08/22/16 07:10 White Blood Count 5.5x10^3/uL (4.0-11.0) Red Blood Count 3.35x10^6/uL (4.30-5.70) L Hemoglobin 10.2g/dL (13.0-17.5) L Hematocrit 30.5% (39.0-53.0) L Mean Corpuscular Volume 91fL (79-100) Mean Corpuscular Hemoglobin 31pg (25-35) Mean Corpuscular Hemoglobin Concent 34g/dL (31-37) Red Cell Distribution Width 14.0% (11.5-14.5) Platelet Count 203x10^3/uL (140-400) Prothrombin Time 14.1SEC (11.7-14.0) H Prothromb Time International Ratio 1.2 (0.8-1.1) H Sodium Level 142mmol/L (136-145) Potassium Level 4.0mmol/L (3.5-5.1) Chloride Level 106mmol/L (98-107) Carbon Dioxide Level 26mmol/L (21-32) Anion Gap 10 (6-14) Blood Urea Nitrogen 24mg/dL (8-26) Creatinine 1.3mg/dL (0.7-1.3) Estimated GFR (Cockcroft-Gault) 53.7 Glucose Level 157mg/dL (70-99) H Calcium Level 8.7mg/dL (8.5-10.1) ASSESSMENT: Severe three-vessel coronary artery disease with ischemic artery myopathy and acute on chronic systolic and diastolic heart failure. PLAN: I discussed extensively today with the patient with regards to treatment. We will admit him for diuresis and monitoring of renal function. He was seen by CT surgery. Will await patient decision regarding revascularization options including but not limited to cardiac surgery with bypass versus high risk supported PCI. The patient wishes to wait for 2 weeks until the return of his daughter from a trip at which point once his decision is made we will schedule him accordingly. He understands the risks and benefits of proceeding with surgery versus waiting. Continue home medical therapy including carvedilol, lisinopril and high-dose statin. Continue aspirin 81 mg daily. Regarding his antiplatelet therapy we will decide if he wishes to pursue surgery or stenting. If he decides to go through with stenting then we will likely initiate him on Plavix therapy. KOURTNEY LOONEY MD Aug 22, 2016 18:29
[2016-08-22] MEDS ORDERED: ATORVASTATIN CALCIUM 40 MG TABLET. PO SCH (21:00)
--- NOTE | 2016-08-23 00:34 | HP ---
ADMIT DATE: 08/22/2016 CHIEF COMPLAINT: Shortness of breath. HISTORY OF PRESENT ILLNESS: A 75-year-old male patient with prior history of hypertension and type 2 diabetes mellitus who had elective stress test which was abnormal. His echocardiogram showed severe LV dysfunction for that he had elective coronary angiogram by Dr. Schwartz, which showed multi-vessel coronary artery disease with elevated left ventricular filling pressures. The patient complains of shortness of breath with exertion. He denies any chest pain, palpitations, PND, orthopnea, or leg swelling. He had been admitted to hospital for considering the CABG given his three-vessel disease and elevated left ventricular filling pressures. PAST MEDICAL HISTORY: Hypertension and type 2 diabetes mellitus. PAST SURGICAL HISTORY: Hip surgery. FAMILY HISTORY: No sudden cardiac . SOCIAL HISTORY: Occasionally drinks alcohol. No smoking. No drug abuse. REVIEW OF SYSTEMS AND PHYSICAL EXAMINATION: Please see my electronic H and P. LABORATORY FINDINGS: WBC 5.5, hemoglobin 10.2, hematocrit 30.5, MCV is 91. PT 14.1 and INR is 1.2. Chemistry: Sodium 142, potassium 4.0, chloride is 106, carbon dioxide 26, anion gap 10, BUN is 24, and creatinine 1.3. IMAGING STUDY: Nuclear medicine scan on 08/21/2016 showed LV ejection fraction 39 percent with inferolateral defect with mild daily-infarct reversibility. ASSESSMENT: 1. Triple vessel coronary artery disease. 2. Hypertension. 3. Diabetes mellitus. 4. History of hip surgery. PLAN: 1. Cardiology and Cardiothoracic Surgery has been consulted. The patient and his family has been considering CABG; however, they need to talk to Thoracic Surgery regarding surgery plans, risks, benefits and alternative options. I did discuss with the patient and his at bed side and will continue all his home medications such as aspirin and Lipitor. 2. CBC and BMP daily. 3. Pain control, his home medications reviewed and counseled, continue home medications. 4. Physical therapy and occupational therapy. 5. I will order left lower extremity Doppler to rule out DVT. NILDA MERCHANT MD DR: AGAPITO/jyothi JOB#: [id number] / [id number]
[2016-08-23 03:40] VITALS: BP 104/74
[2016-08-23 05:28] LABS: BASO % 0 % (0-3); EOS % 6 % (0-3); HEMATOCRIT 27.6 % (39.0-53.0); HEMOGLOBIN 9.6 g/dL (13.0-17.5); LYMPH # 1.7 x10^3/uL (1.0-4.8); LYMPH % 32 % (24-48); MEAN CORPUSCULAR HEMOGLOBIN 31 pg (25-35); MEAN CORPUSCULAR HGB CONC 35 g/dL (31-37); MEAN CORPUSCULAR VOLUME 89 fL (79-100); MONO % 11 % (0-9); NEUT % 52 % (31-73); PLATELET COUNT 167 x10^3/uL (140-400); RED BLOOD COUNT 3.11 x10^6/uL (4.30-5.70); RED CELL DISTRIBUTION WIDTH 13.8 % (11.5-14.5); WHITE BLOOD COUNT 5.3 x10^3/uL (4.0-11.0)
[2016-08-23 05:42] LABS: CALCIUM 8.4 mg/dL (8.5-10.1); CREATININE 1.1 mg/dL (0.7-1.3); GFR 65.1; POTASSIUM 3.9 mmol/L (3.5-5.1)
[2016-08-23 07:00] VITALS: BP 129/93
--- NOTE | 2016-08-23 07:24 | RAD ---
Left lower extremity venous ultrasound, 08/22/2016 : History: Left calf pain Duplex evaluation including grayscale, color flow and spectral Doppler analysis was performed. The femoral and popliteal veins show no filling defects to suggest DVT. The visualized calf veins are unremarkable. IMPRESSION: There is no sonographic evidence of deep vein thrombosis in the left lower extremity
[2016-08-23] MEDS ORDERED: ASPIRIN ENTERIC COATED 81 MG TABLET.DR. PO SCH (08:00)
[2016-08-23] MEDS: IV NORMAL SALINE 1000ML BAG 1,000 ML IV SCH (08:27)
[2016-08-23 11:01] VITALS: BP 122/87
[2016-08-23] MEDS ORDERED: LISINOPRIL 40 MG TABLET. PO SCH (12:00)
[2016-08-23] MEDS ORDERED: SERTRALINE 50 MG TABLET. PO SCH (12:30)
[2016-08-23] MEDS ORDERED: CARVEDILOL 12.5 MG TABLET PO SCH (12:30)
--- NOTE | 2016-08-23 14:04 | PDOC ---
PROGRESS NOTES Chief Complaint Chief Complaint SOB CAD ASSESSMENT AND PLAN: 1. CAD: s/p cath 08/[address] Schwartz, showing triple vessel dz. CV eval for CABG underway. pt would prefer stents rather than CABG 2. HTN: well controlled on current regimen. sl tachy. 3. DM: well controlled on current regimen 4. HLD: on statin 5. Dispo: home with O/P f/U. d/w dr Schwartz Vitals Vitals Vital Signs Date Time Temp Pulse Resp B/P Pulse Ox O2 Delivery O2 Flow Rate FiO2 08/23/16 12:41 95 122/87 08/23/16 11:01 97.8 20 95 Room Air 97.8 08/22/16 09:20 2.0 Physical Exam General: Alert, Oriented X3, No acute distress Heart: Regular rate, Normal S1, Normal S2 Lungs: Clear Abdomen: Normal bowel sounds, Soft, No tenderness Extremities: No edema Skin: No breakdown Labs LABS Laboratory Tests Test 08/23/16 05:03 08/23/16 12:08 White Blood Count 5.3x10^3/uL (4.0-11.0) Red Blood Count 3.11x10^6/uL (4.30-5.70) Hemoglobin 9.6g/dL (13.0-17.5) Hematocrit 27.6% (39.0-53.0) Mean Corpuscular Volume 89fL (79-100) Mean Corpuscular Hemoglobin 31pg (25-35) Mean Corpuscular Hemoglobin Concent 35g/dL (31-37) Red Cell Distribution Width 13.8% (11.5-14.5) Platelet Count 167x10^3/uL (140-400) Neutrophils (%) (Auto) 52% (31-73) Lymphocytes (%) (Auto) 32% (24-48) Monocytes (%) (Auto) 11% (0-9) Eosinophils (%) (Auto) 6% (0-3) Basophils (%) (Auto) 0% (0-3) Neutrophils # (Auto) 2.7x10^3uL (1.8-7.7) Lymphocytes # (Auto) 1.7x10^3/uL (1.0-4.8) Monocytes # (Auto) 0.6x10^3/uL (0.0-1.1) Eosinophils # (Auto) 0.3x10^3/uL (0.0-0.7) Basophils # (Auto) 0.0x10^3/uL (0.0-0.2) Sodium Level 141mmol/L (136-145) Potassium Level 3.9mmol/L (3.5-5.1) Chloride Level 104mmol/L (98-107) Carbon Dioxide Level 25mmol/L (21-32) Anion Gap 12 (6-14) Blood Urea Nitrogen 23mg/dL (8-26) Creatinine 1.1mg/dL (0.7-1.3) Estimated GFR (Cockcroft-Gault) 65.1 Glucose Level 158mg/dL (70-99) Calcium Level 8.4mg/dL (8.5-10.1) Glucose (Fingerstick) 167mg/dL (70-99) Review of Systems Review of Systems no CP, no SOB. would like to go home NICOL MCGEE MD Aug 23, 2016 14:04
[2016-08-23 15:27] VITALS: BP 110/77
[2016-08-23] MEDS ORDERED: FURO-69 PO (15:58)
[2016-08-23] MEDS ORDERED: CLOP75TA PO (15:58)
--- NOTE | 2016-08-23 16:14 | PDOC ---
ALEXERLINDA Candi CANDY PACKER 08/23/16 1614: CARDIO Progress Notes Date and Time Date of Service 08/23/2016 Time of Evaluation 1030 Subjective Subjective: No Chest Pain, No shortness of breath, No Palpitations, No Dizziness Vitals Vitals Vital Signs Date Time Temp Pulse Resp B/P Pulse Ox O2 Delivery O2 Flow Rate FiO2 08/23/16 15:27 97.6 99 20 110/77 96 Room Air 97.6 08/22/16 09:20 2.0 Weight Weight [ ] Input and Output Intake and Output Intake and Output 08/23/16 07:00 Intake Total 1460.8 ml Output Total 1375 ml Balance 85.8 ml Intake Oral 860 ml IV Total 600.8 ml Output Urine Total 1375 ml Laboratory Labs Laboratory Tests Test 08/23/16 05:03 08/23/16 12:08 White Blood Count 5.3x10^3/uL (4.0-11.0) Red Blood Count 3.11x10^6/uL (4.30-5.70) Hemoglobin 9.6g/dL (13.0-17.5) Hematocrit 27.6% (39.0-53.0) Mean Corpuscular Volume 89fL (79-100) Mean Corpuscular Hemoglobin 31pg (25-35) Mean Corpuscular Hemoglobin Concent 35g/dL (31-37) Red Cell Distribution Width 13.8% (11.5-14.5) Platelet Count 167x10^3/uL (140-400) Neutrophils (%) (Auto) 52% (31-73) Lymphocytes (%) (Auto) 32% (24-48) Monocytes (%) (Auto) 11% (0-9) Eosinophils (%) (Auto) 6% (0-3) Basophils (%) (Auto) 0% (0-3) Neutrophils # (Auto) 2.7x10^3uL (1.8-7.7) Lymphocytes # (Auto) 1.7x10^3/uL (1.0-4.8) Monocytes # (Auto) 0.6x10^3/uL (0.0-1.1) Eosinophils # (Auto) 0.3x10^3/uL (0.0-0.7) Basophils # (Auto) 0.0x10^3/uL (0.0-0.2) Sodium Level 141mmol/L (136-145) Potassium Level 3.9mmol/L (3.5-5.1) Chloride Level 104mmol/L (98-107) Carbon Dioxide Level 25mmol/L (21-32) Anion Gap 12 (6-14) Blood Urea Nitrogen 23mg/dL (8-26) Creatinine 1.1mg/dL (0.7-1.3) Estimated GFR (Cockcroft-Gault) 65.1 Glucose Level 158mg/dL (70-99) Calcium Level 8.4mg/dL (8.5-10.1) Glucose (Fingerstick) 167mg/dL (70-99) Physical Exam HEENT: Neck Supple W Full Motion Chest: Symmetric LUNGS: Clear to Auscultation Heart: S1S2, RRR Abdomen: Soft N/T Extremities: No Edema, Other (right radial arteriotomy site C/D/I; pulse 2+; cap refill brisk; 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 abnormal MPI 3 v CAD; denies angina & dyspnea CABG vs Impella assisted PCI - pt prefer Impella assisted PCI but does not want to complete prior to the end of the month 2. HTN control with meds restarted ACEI, BB 3. DM, II check CBG may resume metformin on 4. HLD continue high dose statin therapy KOURTNEY LOONEY MD 08/23/16 2312: CARDIO Progress Notes Plan Plan Pt. seen and examined. Agree with above BELT SEWER note. No acute events overnight. No significant changes to exam. I had a long discussion with the patient again about treatment approaches. He has decided upon PCI. I discussed with him the risks/benefits/alternatives to the procedure. He understands that Impella is not necessarily lower risk and will leave him with incomplete revascularization. Will plan for Impella assisted LM/RCA PCI in 2-3 weeks at patient's request. Will DC home on low dose lasix, start Plavix in anticipation of PCI. Repeat BMP in 1 week. ERLINDA JOHNSON APRN Aug 23, 2016 16:14 KOURTNEY LOONEY MD Aug 23, 2016 23:12
--- NOTE | 2016-08-24 01:02 | DS ---
DATE OF DISCHARGE: 08/23/2016 CHIEF COMPLAINT AND HOSPITAL COURSE: The patient is a 75-year-old gentleman who initially had presented with COPD with known heart history. He was taken to cardiac catheterization by Dr. Schwartz, showing triple-vessel disease. He was, therefore, admitted and Cardiovascular Surgery was consulted for evaluation for CABG. The patient, however, after 24 hours had decided that he would prefer management with catheterization and stent placement if possible over open heart surgery. With all his other medical issues under good control, he was discharged with the addition of Lasix as well as Plavix to home for further outpatient workup. DISCHARGE PHYSICAL EXAMINATION: Please refer to note from same day on 08/23/2016. DISCHARGE DISPOSITION: To home. DISCHARGE CONDITION: Improved. DISCHARGE DIAGNOSES: Acute coronary syndrome, shortness of breath. DISCHARGE MEDICATIONS: Please refer to MAR. DISCHARGE INSTRUCTIONS: The patient will follow up with Dr. Schwartz on an outpatient basis for cardiac catheterization and preop evaluation next week. NICOL MCGEE MD DR: UR/nts JOB#: [id number] / [id number] JONNA King MD MTDD
[2016-08-24] MEDS ORDERED: ONDANSETRON ODT 4 MG TAB.RAPDIS PO SCH (06:00)
== END 2016-08-23 17:00 | disposition home or self-care (01) | DRG 286 ==
LOC: CCL 06:56 → 2 NORTH 09:10
PROVIDERS: ADMIT Internal Medicine; ATTEND Internal Medicine
PROC: 4A023N7 Measurement of Cardiac Sampling and Pressure, Left Heart, Percutaneous Approach (ICD-10-PCS; principal; 2016-08-23)
PROC: B2111ZZ Fluoroscopy of Multiple Coronary Arteries using Low Osmolar Contrast (ICD-10-PCS; 2016-08-23)
PROC: B2151ZZ Fluoroscopy of Left Heart using Low Osmolar Contrast (ICD-10-PCS; 2016-08-23)
DX: I24.9 Acute ischemic heart disease, unspecified (principal); I50.43 Acute on chronic combined systolic (congestive) and diastolic (congestive) heart failure; E11.9 Type 2 diabetes mellitus without complications; E78.00 Pure hypercholesterolemia, unspecified; E78.5 Hyperlipidemia, unspecified; F10.10 Alcohol abuse, uncomplicated; I25.10 Atherosclerotic heart disease of native coronary artery without angina pectoris; I11.0 Hypertensive heart disease with heart failure; Z96.649 Presence of unspecified artificial hip joint; H26.9 Unspecified cataract; Z82.49 Family history of ischemic heart disease and other diseases of the circulatory system; Z83.3 Family history of diabetes mellitus; Z79.82 Long term (current) use of aspirin; Z95.1 Presence of aortocoronary bypass graft; Z79.899 Other long term (current) drug therapy
CPT/HCPCS: 36415; 80048; 82947; 83036; 85027; 85610; 93458; 93971; 94250; C1769; C1892; J2250; J3010; J3490; J7030

== ENCOUNTER 2016-09-07 06:30 | Inpatient (IN) | payer MEDICARE ==
[~2016-09-07] VITALS: Ht 177.8 cm; Wt 90.3 kg
[2016-09-07] VITALS (14 sets, daily range): BP systolic 113–138; BP diastolic 72–91
[~2016-09-07 06:30] MED LIST changes: +ATOR40TA59 PO; +CLOP75TA PO; +CYAN10002 IM; +DEXTROSE 5% IV ONE; +FURO-69 PO; +LIDOCAINE 2% 20 ML VIAL. ONE; +ONDA8TAB12 PO
[2016-09-07 06:51] LABS: HEMATOCRIT 31.5 % (39.0-53.0); HEMOGLOBIN 10.8 g/dL (13.0-17.5); RED BLOOD COUNT 3.5 x10^6/uL (4.30-5.70); RED CELL DISTRIBUTION WIDTH 14.4 % (11.5-14.5); WHITE BLOOD COUNT 7.5 x10^3/uL (4.0-11.0)
[2016-09-07] MEDS ORDERED: ASPIRIN 325 MG TABLET ONE (06:59)
[2016-09-07] MEDS ORDERED: ASPIRIN 325 MG TABLET PO ONE (07:00)
[2016-09-07 07:01] LABS: INR 1.2 (0.8-1.1); PROTHROMBIN TIME PATIENT 14.4 SEC (11.7-14.0)
[2016-09-07 07:16] LABS: CALCIUM 8.7 mg/dL (8.5-10.1); CREATININE 1.5 mg/dL (0.7-1.3); GFR 45.5; POTASSIUM 3.9 mmol/L (3.5-5.1)
[2016-09-07] MEDS ORDERED: IODIXANOL 320 MG/ML 100 ML VIAL. ONE ×2 (07:16→10:54)
[2016-09-07] MEDS ORDERED: HEPARIN for ARTERIAL LINE 1,500 ML ONE (07:16)
[2016-09-07] MEDS ORDERED: DEXTROSE 20% IV ONE ×2 (08:15)
[2016-09-07] MEDS ORDERED: [UNRECOGNIZED DRUG - OTHER] IV ONE ×2 (08:15)
[2016-09-07] MEDS: IV 1/2 NORMAL SALINE 1,000 ML IV SCH ×2 (08:15→18:00)
[2016-09-07] MEDS ORDERED: HEPARIN IV ONE ×2 (08:15)
[2016-09-07] MEDS ORDERED: HEPARIN for IV BOLUS 10,000 UNIT/10 ML VIAL. ONE (08:20)
[2016-09-07] MEDS ORDERED: FENTANYL PF 250 MCG/5 ML VIAL. ONE (08:20)
[2016-09-07] MEDS ORDERED: MIDAZOLAM HCL/PF 5 MG/5 ML VIAL. ONE (08:20)
[2016-09-07] MEDS ORDERED: FENTANYL PF 250 MCG/5 ML VIAL. IV ONE (09:15)
[2016-09-07] MEDS ORDERED: IODIXANOL 320 MG/ML 100 ML VIAL. IART ONE (09:15)
[2016-09-07] MEDS ORDERED: MIDAZOLAM HCL/PF 5 MG/5 ML VIAL. IV ONE (09:15)
[2016-09-07] MEDS ORDERED: LIDOCAINE 2% 20 ML VIAL. IJ ONE (09:15)
[2016-09-07] MEDS ORDERED: HEPARIN for IV BOLUS 10,000 UNIT/10 ML VIAL. IV ONE (09:15)
[2016-09-07] MEDS ORDERED: CONTRAST GIVEN MC PRN (09:15)
[2016-09-07] MEDS ORDERED: ATROPINE 0.5 MG/5 ML DISP.SYRIN. ONE (09:31)
[2016-09-07] MEDS ORDERED: DOPAMINE 400MG/250ML PREMIX 0 ML IV ONE (09:31)
[2016-09-07] MEDS ORDERED: NOREPINEPHRINE BITARTRATE 4 MG/4 ML VIAL. IV ONE (09:43)
[2016-09-07] MEDS ORDERED: NITROGLYCERIN 200 MCG/2 ML SYRINGE FOR CATH/VASC LAB. IART ONE (10:15)
[2016-09-07] MEDS ORDERED: CANGRELOR TETRASODIUM 50 MG VIAL. IV ONE (10:55)
[2016-09-07] MEDS ORDERED: TICAGRELOR 90 MG TABLET. PO ONE (11:45)
[2016-09-07] MEDS ORDERED: CANGRELOR TETRASODIUM 50 MG in IV NORMAL SALINE 250ML 250 ML IV PRN (11:45)
[2016-09-07] MEDS ORDERED: DEXTROSE 50% 25 GM / 50ML DISP.SYRIN. IV PRN (16:00)
[2016-09-07] MEDS ORDERED: LIDOCAINE 1%/EPI 1:100,000 20 ML VIAL. INJ ONE (17:00)
[2016-09-07] MEDS: CARVEDILOL 12.5 MG TABLET. PO SCH (17:39)
[2016-09-07] MEDS: INSULIN ASPART 300 UNITS/3 ML INSULN.PEN SQ SCH (17:55)
--- NOTE | 2016-09-07 17:58 | CARD ---
APPROVED REPORT Procedure(s) performed: Impella PTCA To RPDA PTCA / Stent RPLB PTCA / Stent Left Main HISTORY The patient is a 75 year-old male with a history of : diabetes mellitus with oral treatment, coronary artery disease, hypertension, dyslipidemia, family history of premature CAD. INDICATION The indication(s) include : unstable angina , acute systolic heart failure. CASE TECHNIQUE During this case, Fluoroscopy and low osmolar contrast were used for imaging. PROCEDURE NARRATIVE Indications: RESIDENTIAL I50.21 - Acute systolic congestive heart failure CC I20.0 - Unstable angina CC I50.42 - Chronic combined systolic (congestive) and diastolic (congestive) heart failure Procedures Performed: Assistance with cardiac output using Impeller Pump, Continuous LHC PTCA, PCI RPL and RCA PTCA of the RPDA PTCA, PCI of the LM/LAD After appropriate informed consent, the patient was brought to the lab aide and placed in supine posi tion. The bilateral groins were prepped and draped in usual sterile fashion. Using a 6Fr micropunctur e kit, access was obtained in the right and left groins under 2% lidocaine local anesthesia. After sa tisfactory placement was confirmed via limited femoral angiography, two preclose devices were placed in the left groin in a jennifer cross fashion. Next, a 13Fr sheath was placed in the LCFA after serial d ilation. Next, a 6fr pigtail catheter was placed in the LV over a J-tipped guide wire and LHC pressur es were obtained (LVEDP 18 mm Hg). Next, a 0.018'' Impella wire was used to place a 2.5 Impella pump in the LV. Good flows were obtained. Heparin was given to achieve an ACT > 250. Next, the right sided sheath was upsized to an 8Fr sheath. Through a 8Fr JR4 guide catheter a Prowate r wire was placed in the distal right posterolateral branch and a second wire was placed in the poste rior descending artery. Next, a Trek 2.5 x 12 mm balloon was used to angioplasty the proximal RPL les ion. Next, a 2.0 x 12 mm balloon was used to angioplasty the ostial PDA lesion. Subsequently, a nonco mpliant 2.75 x 15 mm and 3.0 x 15 mm balloons were used to angioplasty the calcified proximal RPL les ion. Subsequently, a Xience 3.0 x 33 mm drug-eluting stent was placed in the distal RCA extending int o the RPL across the ostium of the PDA. Post stent placement the PDA was rewired and a 2.0 x 15 mm tr ek balloon was used in conjunction with a 3.25 mm x 15 mm noncompliant balloon to perform kissing inf lation of the RPDA and RPL bifurcation. Post-kissing balloon angioplasty the PDA had risk DEVON-3 flow and therefore further stenting was deferred. Finally, the proximal and mid section of the RCA into R PL stent was postdilated with a 3.25 mm noncompliant balloon. Finally, an iFR wire was used to evalua te the proximal RCA lesion of approximately 40-50% stenosis and this was negative at 0.98. Final pos t-PCI angiography revealed excellent stent expansion with DEVON-3 flow in the RPL and PDA vessels. Attention was then turned towards the left main and LAD stenosis. A 8 [place] EBU 3.75 guide catheter was used to engage the left main. Next, a Prowater 0.014'' wire was placed in the distal LAD. Of note , the entire LAD is severely negatively remodeled and the caliber of the vessel is less than 1.5 mm. Next, a Remnant Sorter 200 wire was used to attempt EXTERIOR DESIGNER recanalization of the LCx but the wire was unable to t raverse proximal 100% occluded cap. A Trek 2.5/12 mm balloon was used to angioplasty the LM lesion at 12 dinorah. Next, a 2.5mm x 20mm Trek NC balloon was used to angioplasty the lesion at 14 dinorah. There was excellent balloon expansion but significant hypotension which was helped by the Impella assist devic e in place. Next, due to vessel size mismatch, there was difficulty in stent sizing and after balloon angioplasty was used as a guide, a 2.75/23 mm Xience AMY was implanted at 16 dinorah. There was signific ant recoil of the stent due to external compression from calcific lesions and the stent was post-dila michael with a NC 3.5mm and 3.75mm balloons at high pressure which improved but did not fully resolve the stent recoil. The stent was well appossed and therefore given the recurrent hypotension, further int ervention was deferred. Please see prior report for full details regarding the diagnostic angiography. Limited repeat angiogr aphy today revealed persistent distal RCA/RPL/RPDA disease of approximately 80% and a distal LM/LAD d isease of approximately 70% with an occluded LCx. Finally, the sheaths were removed after the removal of the Impella device and the left groin hemostas is was achieved with deployment of the previously placed preclose sutures and the right groin hemosta sis was achieved with an Angioseal device. The patient tolerated the procedure well and there were no immediate complications. Conclusion 1. Severe three vessel coronary artery disease with moderately elevated left ventricular filling pres sure of 20mm Hg. 2. Successful PCI of the distal RCA/RPL with implantation of a 3.0/33 AMY, post-dilated with a 3.25 N C balloon. 3. Successful PCI of the LM/LAD with implantation of a 2.75/23 AMY, post-dilated with a 3.75 NC ballo on. 4. Negative FFR of the proximal RCA. 5. Closure of the right and left arteriotomies with an Angioseal and Perclose devices. Recommendations Aggressive Medical Therapy ASA 81mg daily Ticagrelor 90mg bid indefinitely High dose statin therapy. Supportive care and cardiac rehab.
[2016-09-07] MEDS ORDERED: ATORVASTATIN CALCIUM 40 MG TABLET. PO SCH (21:00)
[2016-09-07] MEDS: OMEGA-3 FATTY ACIDS/FISH OIL 1,000 MG CAPSULE. PO SCH (22:30)
[2016-09-07] MEDS: TICAGRELOR 90 MG TABLET. PO SCH (22:30)
[2016-09-08 03:00] VITALS: BP 111/68
[2016-09-08 07:00] VITALS: BP 148/85
[2016-09-08] MEDS ORDERED: ASPIRIN ENTERIC COATED 81 MG TABLET.DR. PO SCH (08:00)
[2016-09-08] MEDS: TICAGRELOR 90 MG TABLET. PO SCH (08:30)
[2016-09-08] MEDS: OMEGA-3 FATTY ACIDS/FISH OIL 1,000 MG CAPSULE. PO SCH (08:30)
[2016-09-08] MEDS: CARVEDILOL 12.5 MG TABLET. PO SCH (08:32)
[2016-09-08] MEDS: INSULIN ASPART 300 UNITS/3 ML INSULN.PEN SQ SCH ×2 (08:36→12:42)
[2016-09-08] MEDS ORDERED: CHOLECALCIFEROL (VITAMIN D3) 1,000 UNIT TABLET PO SCH (09:00)
[2016-09-08] MEDS ORDERED: SERTRALINE 50 MG TABLET. PO SCH (09:00)
[2016-09-08] MEDS ORDERED: MULTIVITAMIN with MINERAL TABLET. PO SCH (09:00)
[2016-09-08 11:07] VITALS: BP 116/79
[2016-09-08] MEDS ORDERED: TICA90TA PO (11:41)
[2016-09-08] MEDS ORDERED: PANT40TA5 PO (11:41)
--- NOTE | 2016-09-08 12:01 | PDOC3 ---
Discharge Summary Visit Information Date of Admission: Sep 07, 2016 Date of Discharge: Sep 08, 2016 Admitting Diagnosis Comment: 1. CAD with 3 vessel disease 2. Hypertension 3. dyslipidemia 4. DM, II Final Diagnosis Problems Medical Problems: (1) CAD (coronary artery disease) Status: Acute 2. acute systolic heart failure 3. hypertension 4. Hyperlipidemia 5. DM, II Brief Hospital Course Allergies Allergies Coded Allergies Type Severity Reaction Last Updated Verified No Known Drug Allergies 06/06/15 No Vital Signs Vital Signs Date Time Temp Pulse Resp B/P Pulse Ox O2 Delivery O2 Flow Rate FiO2 09/08/16 11:07 97.6 87 16 116/79 96 Room Air 97.6 09/07/16 20:00 2.0 Lab Results Laboratory Tests Test 09/07/16 06:45 09/07/16 09:11 09/07/16 09:58 09/07/16 10:43 White Blood Count 7.5x10^3/uL (4.0-11.0) Red Blood Count 3.50x10^6/uL (4.30-5.70) Hemoglobin 10.8g/dL (13.0-17.5) Hematocrit 31.5% (39.0-53.0) Mean Corpuscular Volume 90fL (79-100) Mean Corpuscular Hemoglobin 31pg (25-35) Mean Corpuscular Hemoglobin Concent 34g/dL (31-37) Red Cell Distribution Width 14.4% (11.5-14.5) Platelet Count 203x10^3/uL (140-400) Prothrombin Time 14.4SEC (11.7-14.0) Prothromb Time International Ratio 1.2 (0.8-1.1) Activated Partial Thromboplast Time 30SEC (24-38) Sodium Level 143mmol/L (136-145) Potassium Level 3.9mmol/L (3.5-5.1) Chloride Level 103mmol/L (98-107) Carbon Dioxide Level 26mmol/L (21-32) Anion Gap 14 (6-14) Blood Urea Nitrogen 26mg/dL (8-26) Creatinine 1.5mg/dL (0.7-1.3) Estimated GFR (Cockcroft-Gault) 45.5 Glucose Level 179mg/dL (70-99) Calcium Level 8.7mg/dL (8.5-10.1) Activated Clotting Time 223sec (92-181) 227sec (92-181) 223sec (92-181) Test 09/07/16 17:20 09/07/16 20:48 09/08/16 08:09 09/08/16 11:55 Glucose (Fingerstick) 162mg/dL (70-99) 143mg/dL (70-99) 169mg/dL (70-99) 200mg/dL (70-99) Laboratory Tests Test 09/07/16 17:20 09/07/16 20:48 09/08/16 08:09 09/08/16 11:55 Glucose (Fingerstick) 162mg/dL (70-99) 143mg/dL (70-99) 169mg/dL (70-99) 200mg/dL (70-99) Brief Hospital Course Mr. Gar is a 75 old male with known 3 vessel CAD diagnosed earlier this month. At that time patient was offered Impella assisted PCI vs cardiac surgery. After consideration, patient opted for Impella assisted PCI, however, requested this be delayed until his daughter returned from vacation. He returned 09/07/16 to undergo this procedure. See procedure report for details. He underwent PCI of the distal RCA/RPL with implantation of a 3.0 X 33 mm AMY and PCI of the LM/LAD with implantation of a 2.75 x 23mm AMY with negative FFR of the proximal RCA. Monitoring overnight has demonstrated no dysrhythmias. Indigestion symptoms have disappeared post-procedure. Walking laps in the CVICU without symptoms. Bilateral CF arteriotomies C/D/I without erythema or edema; mild ecchymosis present. No bruits auscultated at sites. Distal pulses palpable. Discharge on DAPT with Brilinta (ticagrelor) and PPI for GI prophylaxis. Clopidogrel has been discontinued. Discharge Information Condition at Discharge: Stable Follow Up: Weeks (4 weeks with cardiology; 5 -7 days with PCP) Disposition/Orders: D/C to Home Scheduled Aspirin (Aspir 81) 1 TAB PO DAILY (Reported) Atorvastatin Calcium (Atorvastatin Calcium) 1 TAB PO DAILY (Reported) Benazepril Hcl (Benazepril Hcl) 1 TAB PO DAILY (Reported) Carvedilol (Carvedilol) 1 TAB PO BID (Reported) Cholecalciferol (Vitamin D3) (Vitamin D3) 1 TAB PO DAILY (Reported) Clopidogrel Bisulfate (Clopidogrel) 1 TAB PO DAILY Cyanocobalamin (Vitamin B-12) (Cyanocobalamin Injection) 1 ML IM QMONTH ( Reported) Furosemide (Lasix) 1 TAB PO DAILY Metformin Hcl (Metformin Hcl Er) 1 TAB PO BID (Reported) Multivitamin (Multivitamins) 1 TAB PO DAILY (Reported) Ke[place]-3 Fatty Acids/Fish Oil (Fish Oil 1,200 Mg Softgel) 1 EACH PO BID (Reported ) Ondansetron (Zofran Odt) 1 TAB PO Q8HRS (Reported) Sertraline Hcl (Zoloft) 1 TAB PO DAILY (Reported) Ticagrelor (Brilinta) 90 MG PO BID Scheduled PRN Pantoprazole Sodium (Pantoprazole Sodium) 1 TAB PO DAILY PRN PRN GI prophylaxis Patient Instructions Patient Instructions GENERAL INSTRUCTIONS: 1. Your dressing should be removed prior to leaving the hospital. 2. It is OK to shower the day after your procedure. 3. If you received stents, be sure to carry your stent information card with you in your wallet/purse at all times. 4. Call the office immediately at [phone] if you notice any fever or if there is redness, worsening tenderness/pain, increased bruising, or drainage from the puncture site. 5. Should you have bleeding from the site, lie down immediately & put pressure on the site. The pressure should be hard enough to stop the bleeding. Have the nearest person call 911. DO NOT try to drive to the ER with active bleeding. 6. If you notice a change in color, coolness to touch, or loss of feeling in the affected extremity, come to the emergency room. Please have someone drive you or call 911 if no one is available. DO NOT drive yourself. 7. If you normally take glucophage (metformin), please do not take this medicine for 48 hours following your procedure. 8. DO NOT STOP TAKING YOUR PLAVIX OR ASPIRIN UNLESS IT IS CLEARED BY A COLD SAW OPERATOR OF YOUR BARBACK AT OUR OFFICE. 9. QUIT SMOKING: the [place] [employer], [place] [employer], & [place] [employer] have cessation resources available on their websites 10. Please have someone available to drive you home from the hospital as you may be limited by sedation medications given during the procedure. Femoral (Groin) access: 1. Do no lifting, pushing, pulling, bending, stooping, or recurrent stair climbing for 3 days following your procedure. 2. Once past the first 3 days, do not do any HEAVY exertion or lifting for one week following the procedure. No gym workouts, running, lifting greater than a gallon of milk, etc 3. Do not submerge in bath or pool for one week. OK to drive 3 days following your procedure, but if going long distance, do not go alone & take hourly breaks to get out of car and walk around. Call the office at [phone] for any questions or concerns. ERLINDA JOHNSON APRN Sep 08, 2016 12:01
[2016-09-08 14:30] VITALS: BP 134/72
== END 2016-09-08 15:45 | disposition home or self-care (01) | DRG 215 ==
LOC: CCL 06:30 → CVICU 09:05 → 2 SOUTH 09-08 13:00
PROVIDERS: ADMIT Internal Medicine Cardiovascular Disease; ATTEND Internal Medicine Cardiovascular Disease
PROC: 4A023N7 Measurement of Cardiac Sampling and Pressure, Left Heart, Percutaneous Approach (ICD-10-PCS; principal; 2016-09-07)
PROC: 02HA3RZ Insertion of Short-term External Heart Assist System into Heart, Percutaneous Approach (ICD-10-PCS; 2016-09-07)
PROC: 5A0221D Assistance with Cardiac Output using Impeller Pump, Continuous (ICD-10-PCS; 2016-09-07)
PROC: 027135Z Dilation of Coronary Artery, Two Arteries with Two Drug-eluting Intraluminal Devices, Percutaneous Approach (ICD-10-PCS; 2016-09-07)
PROC: 02733ZZ Dilation of Coronary Artery, Four or More Arteries, Percutaneous Approach (ICD-10-PCS; 2016-09-07)
PROC: B2111ZZ Fluoroscopy of Multiple Coronary Arteries using Low Osmolar Contrast (ICD-10-PCS; 2016-09-07)
DX: I25.110 Atherosclerotic heart disease of native coronary artery with unstable angina pectoris (principal); I50.43 Acute on chronic combined systolic (congestive) and diastolic (congestive) heart failure; E11.9 Type 2 diabetes mellitus without complications; E78.5 Hyperlipidemia, unspecified; I11.0 Hypertensive heart disease with heart failure
CPT/HCPCS: 33990; 36415; 80048; 82947; 85027; 85347; 85610; 85730; 92920; 92928; 93571; C1725; C1769; C1771; C1874; C1887; C1892; C9460; G0269; J1815; J2250; J3010; J3490; J7050; J7030

== ENCOUNTER → 2016-12-26 | Outpatient (CLI) | payer BC, MEDICARE ==
[~2016-12-26] MED LIST changes: -DEXTROSE 5% IV ONE; -LIDOCAINE 2% 20 ML VIAL. ONE; +PANT40TA5 PO; +TICA90TA PO
--- NOTE | 2016-12-26 12:51 | CARD ---
APPROVED REPORT EXAM: Two-dimensional and M-mode echocardiogram with Doppler and color Doppler. Other Information Quality : Average Rhythm : RBBB INDICATION Cardiomyopathy 2D DIMENSIONS RVDd2.7 (2.9-3.5cm)Left Atrium(2D)4.9 (1.6-4.0cm) IVSd1.3 (0.7-1.1cm)Aortic Root(2D)3.4 (2.0-3.7cm) LVDd4.6 (3.9-5.9cm)LVOT Diameter2.3 (1.8-2.4cm) PWd1.3 (0.7-1.1cm)LVDs4.0 (2.5-4.0cm) FS (%) 4.2 %SV9.5 ml LVEF(%)18.5 (>50%) Aortic Valve AoV Peak Judd.116.1cm/sAoV VTI21.1cm AO Peak GR.5.4mmHgLVOT Peak Judd.84.9cm/s LVOT VTI 17.40cmAO Mean GR.3mmHg Mitral Valve MV E Ojwgskqs52.5cm/sMV DECEL HYXK576de MV A Ttbpuqto416.6cm/sMV E Mean Gr.3mmHg MV MDG83tsT/A Ratio0.4 MV A [id number] (PHT)6.39cm2 TDI E/Lateral E'7.5E/Medial E'8.7 Pulmonary Valve PV Peak Uphfkgpn291.6cm/sPV Peak Grad.4mmHg RVOT VTI18.6cm Tricuspid Valve TR P. Edhdxtjh255gm/sRAP SDTUPRUR4cgDg TR Peak Gr.21yeXqMQCP63dwYa Pulmonary Vein S1 Tjlmgqpv65.0cm/sD2 Svjlzgro03.3cm/s LEFT VENTRICLE The left ventricle is normal size. There is borderline to mild concentric left ventricular hypertroph y. Left ventricle systolic function is severely impaired. The Ejection Fraction is 25%. There is glob al hypokinesis of the left ventricle. Septal motion consistent with conduction abnormality. Tissue Do ppler imaging reveals severe left ventricular diastolic dysfunction. There is no ventricular septal d efect visualized. RIGHT VENTRICLE The right ventricle is normal size. The right ventricular systolic function is normal. ATRIA The left atrium is moderately dilated. The right atrium size is normal. The interatrial septum is int act with no evidence for an atrial septal defect or patent foramen ovale as noted on 2-D or Doppler i maging. AORTIC VALVE The aortic valve is not well visualized but appears calcified. Doppler and Color Flow revealed no sig nificant aortic regurgitation. There is no significant aortic valvular stenosis. MITRAL VALVE Mitral annular calcification is mild. There is no mitral valve stenosis. Doppler and Color Flow revea led mild mitral regurgitation. TRICUSPID VALVE The tricuspid valve is normal in structure and function. Doppler and Color Flow revealed trace tricus pid regurgitation. The PA pressure was estimated at 19 mmHg. There is no tricuspid valve stenosis. PULMONIC VALVE The pulmonic valve is not well visualized. Doppler and Color Flow revealed no pulmonic valvular regur gitation. There is no pulmonic valvular stenosis. GREAT VESSELS The aortic root is normal in size. The ascending aorta is dilated measuing 3.9 cm. Pulmonary venous f low (Doppler) suggestive of diastolic dysfunction. The IVC is normal in size and collapses >50% with inspiration. PERICARDIAL EFFUSION There is no evidence of significant pericardial effusion. Critical Notification Critical Value: No <Conclusion> Left ventricle systolic function is severely impaired. The Ejection Fraction is 25%. The left atrium is moderately dilated. Mild mitral regurgitation. Trace tricuspid regurgitation. The PA pressure was estimated at 19 mmHg. There is no evidence of significant pericardial effusion.
== END | disposition home or self-care (01) ==
LOC: ECHO 08:45
PROVIDERS: ATTEND Internal Medicine Cardiovascular Disease
DX: I08.1 Rheumatic disorders of both mitral and tricuspid valves (principal); I25.5 Ischemic cardiomyopathy
CPT/HCPCS: 93306